=== PATIENT | male | born 1950 | race Caucasian/White ===

== ENCOUNTER → 2023-10-13 06:20 | Day surgery (SDC) | payer MEDICARE, SELFPAY | LOC: GI 06:20 | PROVIDERS: ATTENDING PHYSICIAN Internal Medicine Gastroenterology | DX: Z12.11 Encounter for screening for malignant neoplasm of colon (principal); D12.5 Benign neoplasm of sigmoid colon; K57.30 Diverticulosis of large intestine without perforation or abscess without bleeding; D12.8 Benign neoplasm of rectum; K62.1 Rectal polyp; K64.8 Other hemorrhoids; K62.4 Stenosis of anus and rectum; Z86.010 Personal history of colon polyps; Z80.0 Family history of malignant neoplasm of digestive organs | CPT/HCPCS: 45385; 45380; 88305 ==

== ENCOUNTER → 2024-04-03 09:43 | Outpatient (REF) | payer MEDICARE, SELFPAY | LOC: RAD 09:43 | PROVIDERS: ATTENDING PHYSICIAN Family Medicine | DX: M25.571 Pain in right ankle and joints of right foot (principal) | CPT/HCPCS: 73630 ==

== ENCOUNTER 2024-08-23 17:30 | Observation (INO) | payer MEDICARE, SELFPAY ==
[2024-08-23] VITALS (7 sets, daily range): BP systolic 132–174; BP diastolic 73–85; BMI 25.0
[2024-08-23 13:48] LABS: % Basophils 0.4 % (0-2); % Eosinophils 1.6 % (0-6); % Immature Granulocytes 0.1 % (0-0.5); % Lymphocytes 21.7 % (20.5-51.1); % Monocytes 8.7 % (1.7-9.3); % Neutrophils 67.5 % (42.2-75.2); Absolute Eosinophils 0.1 10^3/uL (0-0.7); Absolute Lymphocytes 1.8 10^3/uL (1.2-3.4); Absolute Monocytes 0.7 10^3/uL (0.1-0.6); Absolute Neutrophils 5.5 10^3/uL (1.4-6.5); Hematocrit 42.5 % (39.0-52.0); Hemoglobin 14.5 g/dL (13.0-18.0); Mean Corp Hgb Conc. 34.1 g/dL (33.0-37.0); Mean Corpuscular Hgb 31.5 pg (27.0-31.0); Mean Corpuscular Volume 92.4 fL (80.0-94.0); Mean Platelet Volume 9.4 fL (7.4-10.4); Nucleated Red Blood Cells % 0 % (-); Platelet Count 203 10^3/uL (130-400); Red Cell Dist. Width 12.4 % (11.5-14.5); White Blood Cell Count 8.2 10^3/uL (4.8-10.8)
[2024-08-23 13:59] LABS: ALT (SGPT) 18 U/L (0-50); AST (SGOT) 25 U/L (17-59); Albumin 4.2 g/dl (3.5-5.0); Alkaline Phosphatase 50 U/L (38-126); Blood Urea Nitrogen 23 mg/dl (9-20); Calcium 9.7 mg/dl (8.4-10.2); Carbon Dioxide 28 mmol/L (22-30); Chloride 105 mmol/L (98-107); Estimated Creatinine Clearance 82 ml/min; Glucose 123 mg/dl (70-99); Sodium 139 mmol/L (135-145); Total Bilirubin 2.4 mg/dl (0.2-1.3); Total Protein 6.9 g/dl (6.3-8.2); eGFR > 60.00
--- NOTE | 2024-08-23 14:02 | ED.CVA ---
History of Present Illness
General
Chief Complaint: CVA/TIA Symptoms
Source: patient
Exam Limitations: none
Time Seen by Provider: 08/23/24 13:52
Nursing documentation reviewed up to this point in time: agreed with
Onset of Stroke Symptoms
Onset of symptoms known: Yes
Date of onset of symptoms: 08/23/24
Time of onset of symptoms: 12:30
History of Present Illness
History of Present Illness:
Patient presents to ED secondary to sudden onset of difficulty speaking, slurred speech, blurred vision, and right arm/hand tingling sensation, while he was at home around 12:30 PM. Since then, patient states that his symptoms have gradually
improved. At the time of evaluation ED, patient states that his symptoms have mostly resolved. Denies previous history of similar symptoms. Denies headache. Denies difficulty with swallowing. Denies weakness. Denies difficulty with ambulation.
Denies recent illness. Denies recent medication changes or diet changes.
Review of Systems
Review of Systems
Allergies reviewed?: Yes
All Other Systems: ROS reviewed and negative except as documented in HPI and ROS
Constitutional: Reports no symptoms
Respiratory: Reports no symptoms
Cardiac: Reports no symptoms
ABD/GI: Reports no symptoms
Musculoskeletal: Reports no symptoms
Skin: Reports no symptoms
Neurological: Reports numbness and other (Blurred vision, expressive aphasia)
Phy Exam
Physical Exam
Physical Exam:
Physical Exam
General: no apparent distress, not acutely ill. afebrile
Head: nc/at. eomi
Neck: supple. normal range of motion. no carotid bruit
Heart: s1/s2 regular rate and rhythm, no murmur.
Lungs: no acute respiratory distress. clear bilaterally
Abdomen: normal bowel sounds. not tender.
Neuro: alert and oriented x 3. no focal neurological deficits. normal speech. normal finger to nose testing
Skin: no rash
Psychiatric: well kept. interactive and cooperative
Extremities: no edema. no calf tenderness.
Course
Orders/Labs/Results
Orders:
Orders
08/23/24 13:39
Complete Blood Count/With Diff Urgent
Comprehensive Metabolic Panel Urgent
08/23/24 13:59
CT HEAD STROKE ALERT W/o Cont Urgent
Comment:
Reason For Exam: RUE tingling with expressive aphasia
CT HEAD/NECK ANG STROKE ALERT Urgent
Comment:
Reason For Exam: RUE tingling w expressive aphasia
08/23/24 14:00
Electrocardiogram (*1) Stat
Reason for Study: Other
Other Reason for Exam: neuro symptoms
EKG- Treatment ONCE
08/23/24 14:37
Aspirin Chewable [Low Strength Aspirin] 81 mg PO NOW STA
Clopidogrel Bisulfate [Plavix] 300 mg PO NOW STA
08/23/24 15:44
EEG Routine Routine
Reason for Exam: transient aphasia
08/23/24 16:54
Aspirin Low Dose EC [Aspir Low (Enteric Coated)] 81 mg .ROUTE .STK-MED ONE
08/23/24 16:55
Clopidogrel Bisulfate [Plavix] 300 mg .ROUTE .STK-MED ONE
08/23/24 16:57
Aspirin Chewable [Low Strength Aspirin] 81 mg .ROUTE .STK-MED ONE
08/23/24 17:01
Admit/Transfer Patient As Directed
Co-Sign Provider:
Level of Care: Observation services
Assign to:: Telemetry
Physician / Group: [email or web address]
Diagnosis: Acute L MCA region transient neurological episode : TIA vs CVA
Reason for Telemetry: CVA/TIA
Date to Stop Telemetry: 08/26/24
Time to Stop Telemetry: 11:00
Reason for Hospitalization: Acute L MCA region transient neurological episode : TIA vs CVA
08/23/24 17:03
Code Status As Directed
Resuscitation Status: Full Code
08/23/24 17:04
B12 [Vitamin B12] Routine
Hemoglobin A1c [Glycohemoglobin (HgbA1c)] Routine
Lipid Profile [Cardiovascular Evaluation] Routine
TSH Reflex To Free T4 Routine
08/23/24 17:44
Speech Therapy Eval & Treat Routine
08/23/24 18:38
Acetaminophen [Tylenol/Feverall] 650 mg RECTAL Q4HPRN PRN
Acetaminophen [Tylenol] 650 mg PO Q4HPRN PRN
08/23/24 18:38
Case Management Consult ONCE
Case Management Consult: Discharge Planning
Comment: stroke/tia
DIETARY IP CONSULT Routine
Reason for Consult: stroke/TIA
NEUROLOGY CONSULT Urgent
Consulting Provider: Sofie Arenas
Was physician already notified: Yes
Reason for consult: TIA vs CVA
Drywall Installer Urgent
Activity As Directed
Activity Level: With Assistance
NIH Stroke Scale As Directed
Directions: Per protocol
Comment: every shift and with any change in condition or mental status
Neurological Checks As Directed
Frequency: q4h
Additional Instructions:: q4h x 24h upon admission to the floor, then qshift & with any change in condition
and mental status
Patient Education As Directed
Type: Stroke education packet
Comment: provide to patient and family
Pneumatic Compression Sleeves As Directed
Type: Knee high
Vital Signs As Directed
Frequency: Per unit guidelines
Ot Eval And Treat Routine
Pt Eval And Treat Routine
Activity Level: With Assistance
DX Deep Vein Thrombosis Video Routine
08/24/24 06:00
Echo 2D MMode Color/Doppler Routine
Reason for Study: Thrombotic source for stroke-like sxs
Basic Metabolic Panel IN AM
Cardiovascular Evaluation IN AM
08/24/24 08:00
Aspirin Chewable [Low Strength Aspirin] 81 mg PO DAILY
Clopidogrel Bisulfate [Plavix] 75 mg PO DAILY
Rosuvastatin Calcium [Crestor] 20 mg PO DAILY
08/24/24 19:31
MR Brain W/o & With Contrast Routine
Reason For Exam: meningioma
OK for patient to be off Cardiac Monitoring for MRI: No
Recent pill cam endoscopy?: No
08/26/24 11:00
DC Protocol for Telemetry ONCE
Abnormal Lab Results
08/23/24
13:39
RBC 4.60 L 10^6/uL
(4.70-6.10)
MCH 31.5 H pg
(27.0-31.0)
Absolute Monos (auto) 0.7 H 10^3/uL
(0.1-0.6)
BUN 23 H mg/dl
(9-20)
Glucose 123 H mg/dl
(70-99)
Total Bilirubin 2.4 H mg/dl
(0.2-1.3)
08/23/24 13:39
08/23/24 13:39
Vital Signs
Initial and Last Documented VS:
Initial Vital Signs
Temp Pulse Resp BP Pulse Ox
97.6 F 53 16 165/85 98
08/23/24 13:31 08/23/24 13:31 08/23/24 13:31 08/23/24 13:31 08/23/24 13:31
Last Documented Vital Signs
Temp Pulse Resp BP Pulse Ox
97.6 F 56 20 141/76 98
08/23/24 13:31 08/23/24 18:30 08/23/24 18:30 08/23/24 18:00 08/23/24 18:35
MDM/Problems Addressed
MDM/Problems Addressed:
Stroke alert activated. Patient evaluated immediately by myself along with neurology, .
CT head/CTA head neck without acute findings. Patient is not a candidate for treatment via tenecteplase, secondary to complete resolution of symptoms at this time, with NIH stroke scale score of 0.
History and exam concerning for TIA. As such, patient will be admitted for further evaluation/tx, and will be started on aspirin and Plavix.
*EKG
Interpreted by ED Provider?: Yes
EKG Intrepretation Date: 08/23/24
Heart Rate: 58
Rate: bradycardiac
Rhythm: sinus
[place]: normal axis
*Critical Care Note
Total Time (30-74mins, 75-104mins- exclusive of procedures): Not Applicable
ED Attending Note
-
Portions of this chart may have been created with voice recognition software.� Occasional wrong word or��sound alike� substitutions may have occurred due to the inherent limitations of voice recognition software.
Discharge Plan
Departure
Patient Disposition: Admit
Date of Disposition: 08/23/24
Time of Disposition: 14:55
Admit to: Telemetry
Presentation/result/management discussed w/ accepting MD/DO: Hospitalist
Discharge Problem:
TIA (transient ischemic attack)
Interventions
Interventions:
*Risk Screen - Suicide Last Done: 08/23/24 19:44
*General Assessment Last Done: 08/23/24 17:41
*Neglect/Abuse Screening Last Done: 08/23/24 13:35
*ED- Fall Risk Assessment Last Done: 08/23/24 18:15
*ED COVID-19 Vaccine History Last Done: 08/23/24 19:44
*Nursing Disposition Last Done: 08/23/24 18:15
ED- Pulmonary Assessment Last Done: 08/23/24 14:34
ED- Neurological Assessment Last Done: 08/23/24 14:34
ED- Cardiac Assessment Last Done: 08/23/24 14:34
ED Swallowing Screen Last Done: 08/23/24 15:00
Discharge Date and Time
Discharge Date/Time: 08/23/24 18:15
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
[2024-08-23] MEDS: PLAVIX 300 MG PO (16:56)
[2024-08-23] MEDS: LOW STRENGTH ASPIRIN 81 MG PO (16:57)
[2024-08-23 17:27] LABS: HDL Cholesterol 67 mg/dl; LDL Cholesterol, Calculated 71 mg/dl; Total Cholesterol 152 mg/dl (50-199); Triglyceride 71 mg/dl (10-149); Very Low Density Lipoprotein 14 mg/dl (0-30)
[2024-08-23 18:33] LABS: TSH Reflex To Free T4 3.12 uIU/ml (0.47-4.68)
--- NOTE | 2024-08-23 18:40 | PTCARENOTE ---
Received pt from ER via stretcher, accompanied by ER staff. Pt AAO x3, PEÑA well,ambulatory to bed,gait steady; no c/o weakness/dizziness. NIHSS 0; pt passed swallow eval upon arrival to unit. VSS. PLaced on telemetry:NSR/SB. On room air- pulse
ox 98%, no SOB noted. Abd soft, roundedm to start regular diet. Pt DTV; urinal at bedside. Oriented to 4East, currently resting in bed, no c/o. Will continue to monitor.
[2024-08-23 20:20] LABS: Vitamin B12 686 pg/ml (239-931)
[2024-08-24] MEDS: TYLENOL 650 MG PO ×3 (01:10→13:55)
[2024-08-24 03:36] VITALS: BP 115/59
[2024-08-24 07:20] VITALS: BP 123/68
[2024-08-24] MEDS: LOW STRENGTH ASPIRIN 81 MG PO (07:42)
[2024-08-24] MEDS: CRESTOR 20 MG PO (07:42)
[2024-08-24] MEDS: PLAVIX 75 MG PO (07:42)
[2024-08-24 07:44] LABS: Blood Urea Nitrogen 17 mg/dl (9-20); Calcium 9.5 mg/dl (8.4-10.2); Carbon Dioxide 28 mmol/L (22-30); Chloride 104 mmol/L (98-107); Estimated Creatinine Clearance 82 ml/min; Glucose 92 mg/dl (70-99); HDL Cholesterol 70 mg/dl; LDL Cholesterol, Calculated 91 mg/dl; Potassium 4.3 mmol/L (3.5-5.1); Sodium 141 mmol/L (135-145); Total Cholesterol 179 mg/dl (50-199); Triglyceride 91 mg/dl (10-149); Very Low Density Lipoprotein 18 mg/dl (0-30); eGFR > 60.00
--- NOTE | 2024-08-24 09:16 | EEG.RPT ---
Electroencephalogram Report
Recording
Date of EE08/24/24
Type of EEG: Routine
Length of EEG recordin minutes
Done with Video Recording: Yes
Patient Status: Inpatient
Recording Conditions: Awake and Drowsy
Hyperventilation Performed: Yes
Photic Stimulation Performed: Yes
Report
LESS THAN 1 HOUR EEG REPORT
LESS THAN 1 HOUR EEG INTERPRETATION:
Unremarkable EEG for age
CLINICAL CORRELATION:
A normal EEG does not rule out a diagnosis of epilepsy. If clinical suspicion for seizure persists, a prolonged recording may be warranted.
Clinical correlation is advised.
METHODS:
A 21 channel digitized electroencephalogram (EEG) was performed using the 10/20 international system of electrode placement and one-lead of ECG recorded. Video was recorded. Persyst quantitative EEG analysis was performed.
ELECTROENCEPHALOGRAPHER IMPRESSION(S):
Quality of study
Good
Background
There was an unremarkable anterior-posterior voltage gradient of alpha frequency.
With eye opening the background activity changed to a low voltage mixture of frequencies.
There were no significant asymmetries of background activity noted.
Sleep
Drowsiness present
Hyperventilation
No driving
Photic Stimulation
No driving
ECG
Normal sinus rhythm
[2024-08-24 09:48] LABS: Glycohemoglobin (HgbA1c) 5.3 % (4.0-5.6)
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
[2024-08-24 11:20] VITALS: BP 133/64
[2024-08-24 11:25] VITALS: BP 132/60; PULSE 61
[2024-08-24] MEDS: KEPPRA 1000 MG IV (11:34)
[2024-08-24 12:08] LABS: Magnesium 1.9 mg/dl (1.6-2.3)
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
[2024-08-24 15:11] VITALS: BP 133/74
--- NOTE | 2024-08-24 15:32 | W.DCSUMMARY ---
Discharge Summary
Discharge Data
Date of Admission: 08/23/24
Date of Discharge: 08/24/24
-
Pending Results: No
Hospital Course
Hospital course
Patient admitted to the hospital with language and sensory symptoms and concern for CVA, MRI brain came back negative, echocardiogram came back unremarkable, EEG shows no seizure activity.
Neurology still recommending Keppra on discharge 500 mg twice daily, will also add baby aspirin.
During hospitalization patient was treated from the [facility]
Rule out CVA.
MRI brain came back shows
No acute intracranial abnormality noted.
There is an 8 mm calcified, extra-axial lesion along the left frontal convexity consistent with calcified meningioma. There is no significant local mass effect.
Mild atrophy with sequelae of mild small vessel ischemic disease.
Echocardiogram done shows :
Normal biventricular size and systolic function without regional wall motion
abnormality. Estimated LVEF 60-65%.
No significant valve disease.
Interatrial septum is intact with no evidence of shunting by color flow
Doppler.
EEG shows no seizure activity.
Seen by neurology.
Started on baby aspirin, statin.
Also started on Keppra by neurology.
Follows neurology recommendation regarding discharge plan and discharge medications
LDL 91
Left high vertex calcifications versus meningioma.
- Observe
HLD
- c/w Rosuvastatin
Total time spent on today's encounter was 40 minutes which included time spent in counseling the patient/family regarding diagnosis and treatment plan as listed above, goals of care, and symptom management. Case was discussed with nursing staff,
specialists, and care coordinators/case management. All labs and imaging personally reviewed by me. Remainder the time spent in detailed review of previous records, lab data, imaging, and other medical provider documentation.
Anticipated Discharge: Today
Discharge Plan
-
Patient Disposition: Home (Routine Discharge)
Discharge Diagnosis/Procedures: TIA.
Rule out seizure
Diet: As tolerated
Activity: As tolerated
Driving Restrictions: Not until seen by your Dr
Referrals:
Gianfranco Cash MD [Active] - in two to three weeks
Elle Martinez MD [Family Provider] -
Prescriptions:
New
levetiracetam 500 mg Tablet
500 mg PO BID Qty: 60 0RF
aspirin 81 mg Tablet,Chewable
81 mg PO DAILY Qty: 30 0RF
acetaminophen 325 mg Tablet
650 mg PO Q4HPRN PRN (Reason: MCMANUS, mild pain, or temp >100.4F) Qty: 0 0RF
Continued
ibuprofen [Advil] 200 mg Tablet
400 mg PO Q6H PRN (Reason: mild pain)
rosuvastatin 20 mg tablet
20 mg PO DAILY
Discharge Orders:
Discharge Patient (As Directed); Ordered 08/24/24
Ordered By: Mary Haney
Discharge Date and Time
Print Language: ROMANSH
--- NOTE | 2024-08-24 17:46 | CM ---
Alert awake oriented patient who lives with Luann in 2 story home with 2 step to enter and 12 steps to bed bathroom He is independent in all activities of daily living.He was offered VN he declined need.[facility] letter given explained signed on
chart.
No VN hx / No SNF history
Pharmacy [facility]
PCP DR Martinez
PLAN Home Declined VN
== END 2024-08-24 18:28 | disposition home or self-care (01) ==
LOC: 4 EAST ACU 17:30
PROVIDERS: Emergency Medicine; ADMITTING PHYSICIAN Internal Medicine; ATTENDING PHYSICIAN General Practice; CONSULT PHYSICIAN Psychiatry & Neurology Neurology; EMERGENCY PHYSICIAN Emergency Medicine; FAMILY PHYSICIAN Family Medicine
DX: G45.9 Transient cerebral ischemic attack, unspecified (principal); H53.8 Other visual disturbances; R47.01 Aphasia; R47.81 Slurred speech; R20.2 Paresthesia of skin; R20.0 Anesthesia of skin; R29.818 Other symptoms and signs involving the nervous system; D32.9 Benign neoplasm of meninges, unspecified; E80.4 Gilbert syndrome; I10 Essential (primary) hypertension; E78.00 Pure hypercholesterolemia, unspecified; R00.1 Bradycardia, unspecified; I67.82 Cerebral ischemia; G31.9 Degenerative disease of nervous system, unspecified; Z87.442 Personal history of urinary calculi; Z79.82 Long term (current) use of aspirin; Z79.02 Long term (current) use of antithrombotics/antiplatelets
CPT/HCPCS: 70450; 70496; 70498; 70553; 80048; 80053; 80061; 82607; 83036; 83735; 84443; 85025; 93005; 93306; 95816; 97162; 97167; 99285; A9575; G0378; Q9967

== ENCOUNTER 2024-09-27 13:35 | Outpatient (RCR) | payer MEDICARE, SELFPAY | END 2024-09-27 23:59 | disposition home or self-care (01) | LOC: RST 13:35 | PROVIDERS: ATTENDING PHYSICIAN Family Medicine | DX: G45.9 Transient cerebral ischemic attack, unspecified (principal); R41.89 Other symptoms and signs involving cognitive functions and awareness; H53.8 Other visual disturbances; R47.89 Other speech disturbances; Z73.6 Limitation of activities due to disability | CPT/HCPCS: 96125; 97129; 97130 ==

== ENCOUNTER 2024-10-22 08:41 | Outpatient (RCR) | payer MEDICARE, SELFPAY | END 2024-10-22 23:59 | disposition home or self-care (01) | LOC: RST 08:41 | PROVIDERS: ATTENDING PHYSICIAN Family Medicine | DX: G45.9 Transient cerebral ischemic attack, unspecified (principal); R41.89 Other symptoms and signs involving cognitive functions and awareness; H53.8 Other visual disturbances; D32.9 Benign neoplasm of meninges, unspecified; R47.89 Other speech disturbances; Z73.6 Limitation of activities due to disability | CPT/HCPCS: 97129; 97130 ==

== ENCOUNTER 2024-11-28 10:15 | Outpatient (RCR) | payer MEDICARE, SELFPAY | END 2024-11-28 23:59 | disposition home or self-care (01) | LOC: RST 10:15 | PROVIDERS: ATTENDING PHYSICIAN Family Medicine | DX: G45.9 Transient cerebral ischemic attack, unspecified (principal); R41.89 Other symptoms and signs involving cognitive functions and awareness; D32.9 Benign neoplasm of meninges, unspecified; H53.8 Other visual disturbances; R47.89 Other speech disturbances; Z73.6 Limitation of activities due to disability | CPT/HCPCS: 97129; 97130 ==

== ENCOUNTER 2024-12-05 07:11 | Outpatient (RCR) | payer MEDICARE, SELFPAY | END 2024-12-05 09:25 | disposition home or self-care (01) | LOC: RST 07:11 | PROVIDERS: ATTENDING PHYSICIAN Family Medicine | DX: G45.9 Transient cerebral ischemic attack, unspecified (principal); R41.89 Other symptoms and signs involving cognitive functions and awareness; D32.9 Benign neoplasm of meninges, unspecified; H53.8 Other visual disturbances; R47.89 Other speech disturbances; Z73.6 Limitation of activities due to disability | CPT/HCPCS: 97129; 97130 ==

== ENCOUNTER → 2024-12-27 09:00 | Outpatient (REF) | payer MEDICARE, SELFPAY | LOC: CLAB 09:00 | PROVIDERS: ATTENDING PHYSICIAN Student in an Organized Health Care Education/Training Program; FAMILY PHYSICIAN Family Medicine | DX: M20.21 Hallux rigidus, right foot (principal) | CPT/HCPCS: 88304 ==

== ENCOUNTER → 2025-02-05 10:35 | Outpatient (REF) | payer MEDICARE, SELFPAY | LOC: RAD 10:35 | PROVIDERS: ATTENDING PHYSICIAN Student in an Organized Health Care Education/Training Program; FAMILY PHYSICIAN Family Medicine | DX: I73.9 Peripheral vascular disease, unspecified (principal) | CPT/HCPCS: 93922; 93925 ==

== ENCOUNTER 2025-02-28 16:07 | Inpatient (IN) | payer MEDICARE, SELFPAY ==
[2025-02-27 14:04] VITALS: BMI 24.5
[2025-02-27 15:20] LABS: Blood Urea Nitrogen 20 mg/dl (9-20); Calcium 9.6 mg/dl (8.4-10.2); Carbon Dioxide 29 mmol/L (22-30); Chloride 103 mmol/L (98-107); Estimated Creatinine Clearance 84 ml/min; Glucose 84 mg/dl (70-99); Potassium 4.7 mmol/L (3.5-5.1); Sodium 136 mmol/L (135-145); eGFR > 60.00
[2025-02-28 16:37] VITALS: BMI 24.5
[2025-02-28 16:38] VITALS: BP 169/79
[2025-02-28] MEDS: NORMOSOL-R/PLASMALYTE-A 1000 IV (16:57)
[2025-02-28] MEDS: CELEBREX 200 MG PO (16:57)
[2025-02-28] MEDS: TYLENOL 1000 MG PO (16:57)
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
[2025-02-28 22:45] VITALS: BP 154/81; BP 169/79
[2025-02-28 23:00] VITALS: BP 121/52
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
[2025-02-28 23:13] VITALS: BP 136/58
[2025-02-28 23:15] VITALS: BP 136/58
[2025-02-28 23:30] VITALS: BP 143/74
[2025-02-28 23:50] VITALS: BMI 24.6
[2025-03-01] VITALS (9 sets, daily range): BP systolic 118–153; BP diastolic 62–82; PULSE 82; O2SAT 96
[2025-03-01] MEDS: NORMOSOL-R/PLASMALYTE-A 1000 IV ×2 (00:22→22:00)
[2025-03-01] MEDS: ZOSYN 50 IV ×5 (00:28→23:19)
[2025-03-01] MEDS: VANCOCIN 540 MG IV (01:12)
[2025-03-01] MEDS: ANCEF 10 IV ×2 (04:00→13:17)
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
--- NOTE | 2025-03-01 09:24 | W.PN.UPDATE ---
Update Note
Progress Note Update
74M s/p R CARLEE, I&D, soft tissue rearrangement for treatment of exposed hardware. Doing well this AM, no pain. CFT brisk, sensation intact to pedal distributions, motor function intact, calves soft supple nontender to touch.
- Strict NWB RLE
- Dressings c/d/i
- elevate RLE 2-3 pillows
- would appreciate ID recommendations, IV abx
-- cx x2 (pre and post lavage), bx x1
- will continue to monitor, patient has appointment schedule w/ Amandeep on Tuesday
--- NOTE | 2025-03-01 09:37 | PHA.VAN.IN ---
Addendum entered and electronically signed by Yanira Ortega RPH 03/01/25 14:13:
BUN & SCR ordered per protocol
Original Note:
Assessment
- Assessment
Renal Function: Appears similar to baseline
AUC Dosing Plan
- Dosing Variables
Dosing Weight (kg): 80
Dosing CrCl (ml/min): 84
Vd coefficient (L/kg): 0.7
- Empiric Dosing
Initial / Loading Dose: 2000mg - 03/01 01:12
Maintenance Regimen: Vanc 1000mg Q12H
Estimated AUC (mcg*h/mL): 500
Estimated Peak (mcg*h/mL): 30.3
Estimated Trough (mcg/ml): 13.4
Estimated Half Life (H): 9.3
- Monitoring
No levels ordered at this time: consider levels in next few days
Pharmacokinetics Vancomycin I
- -
Patient Age: 74
Patient Sex: Male
Vancomycin Day #: 2
Indication: Bone And Joint
Requesting Provider: Dr. Ingram
Pertinent Antimicrobial Allergies:
NKDA
Height / Weight:
Height 5 ft 11 in
Actual Weight 79.968 kg
- Vital Signs / Lab Results
Temp Pulse Resp BP Pulse Ox
97.7 F 74 18 142/73 95
03/01/25 07:00 03/01/25 07:00 03/01/25 07:00 03/01/25 07:00 03/01/25 07:00
Lab Results - Chemistry
02/27/25
13:07
BUN 20
Creatinine 0.8
Estimated Creat Clear 84
[2025-03-01 12:38] LABS: Glycohemoglobin (HgbA1c) 5.2 % (4.0-5.9)
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
[2025-03-01] MEDS: TYLENOL 500 MG PO (15:46)
--- NOTE | 2025-03-01 16:30 | VNURNOTE ---
Home Health Liaison met with patient and spouse at bedside to discuss HH nurse/therapy, visits, schedule and homebound status. Offered [facility] -our partner agency. Both are agreeable and understands that visits at home will be 2-3 x per
week to assess and teach medical management. Both are aware that [facility] will contact them for start of care in 1-2 days after discharge from . Provided contact number for [facility]. Will watch for IV Antibx.
[facility] referral completed in [facility].
--- NOTE | 2025-03-01 16:57 | OR.RPT ---
Operative Report
Operative Report
OPERATIVE REPORT
Patient Name: Valeriy Benjamin

Date of Surgery: 03/01/2025
Surgeon: Arash Bernstein DPM
Assistants: Arash Wright DPM, Diane Varela DPM
Preoperative Diagnosis:
Nonhealing surgical wound, right foot
Exposed hardware and tendon, right first metatarsophalangeal joint (MTPJ)
Postoperative Diagnosis:
Same as preoperative
Procedures Performed:
Adjacent tissue transfer with local flap closure (�hurricane flap�) (CPT 38106 Modifier 78) � right foot
Removal of hardware, deep (CPT 87894 Modifier 78) � right foot
Anesthesia: General anesthesia with 10ccs of 0.5% bupivacaine plain
Hemostasis: Anatomic dissection
Estimated Blood Loss: Minimal
Specimens:
Right foot wound and hardware culture
Post-washout culture
Right foot hardware (pathology
Implants: None
Complications: None
Findings:
There was a nonhealing wound at the distal aspect of the prior right first MTPJ incision measuring approximately 1.8 cm x 1.5 cm with exposed extensor hallucis longus (EHL) tendon and underlying plate. There was no purulence or necrotic tissue. The
underlying fusion site appeared solid with firm, viable bone. The surrounding soft tissues were healthy and well-vascularized.
Indications for Procedure:
The patient is an 74-year-old male who underwent right first MTPJ arthrodesis approximately eight weeks prior. Postoperatively, he developed a nonhealing wound at the distal incision. He was evaluated earlier this week in the office and the wound
had exposure of the EHL tendon and hardware. Given the exposed hardware and failure of conservative management, surgical debridement, hardware removal, and local tissue rearrangement were indicated to achieve closure if appropriate
Procedure in Detail:
After appropriate identification and marking of the right foot, the patient was brought to the operating room and placed supine on the operating table. Following induction of anesthesia, the right foot was prepped and draped in the usual sterile
fashion.
Attention was directed to the prior incision over the first MTPJ. The nonhealing wound, measuring approximately 1.8 cm x 1.5 cm, was identified with exposure of the underlying plate and EHL tendon. Sharp excisional debridement of all nonviable
tissue was performed using a #15 blade and rongeur down to the level of bone until healthy, bleeding soft tissue and bone were encountered. The previously utilized proximal aspect of the incision was then carried down to the plate.
The exposed Burtrum Crosscheck plate was visualized and all screws were sequentially removed in their entirety. The plate was then removed in its entirety without difficulty. The underlying arthrodesis site was inspected and found to be solid with
no motion across the fusion. The bone appeared healthy and viable. No purulence or evidence of deep infection was present.
Deep wound and hardware cultures were obtained. The wound was then copiously irrigated with several liters of sterile saline solution. A post-washout culture was also taken for microbiologic analysis.
There was no signs of acute infection at this time, so closure was deemed appropriate. Given the circular defect, a two-incision �hurricane-type� local skin flap was designed to achieve tension-free coverage. The incisions were carried approximately
3cms proximally and distally in a curvilinear fashion. The flaps were carefully elevated and transposed over the defect, ensuring adequate vascularity and alignment of the tissue edges. The wound was primarily closed in layers using 3-0 Monocryl for
the subcutaneous tissues and a combination of 3-0 and 4-0 Prolene for the skin in an interrupted fashion.
A sterile bolster dressing was applied over the incision site, followed by a well-padded posterior splint to maintain immobilization and protection of the repair.
The patient tolerated the procedure and anesthesia well. All counts were correct at the end of the procedure. He was transferred to the recovery room in stable condition.
Postoperative Plan:
Maintain dressing clean, dry, and intact
Continue non-weightbearing to right lower extremity
Await culture results and treat with antibiotics as indicated
Follow-up in 3-5 days for wound evaluation
[2025-03-01] MEDS: VANCOCIN 200 IV (17:42)
[2025-03-01] MEDS: MOTRIN 600 MG PO (21:55)
[2025-03-01] MEDS: CRESTOR 20 MG PO (21:55)
[2025-03-01] MEDS: LOW STRENGTH ASPIRIN 81 MG PO (21:56)
[2025-03-02 04:10] VITALS: BP 141/76
[2025-03-02] MEDS: ZOSYN 50 IV ×3 (05:33→17:48)
[2025-03-02] MEDS: VANCOCIN 200 IV ×2 (05:33→18:09)
[2025-03-02 07:31] LABS: Blood Urea Nitrogen 14 mg/dl (9-20); Estimated Creatinine Clearance 84 ml/min
--- NOTE | 2025-03-02 08:10 | PHA.VAN.FU ---
Vancomycin Assessment / Plan
- Assessment
Renal Function: Stable
In the past 24 hrs, patient has been: Afebrile
Concomitant Antimicrobials: ZOSYN
- Dosing Plan
Continue: 1000MG Q12H
- Monitoring Plan
Peak Level: 03/03 @2100
Trough Level: 03/04 @0530
- Follow Up
Pharmacy will continue to follow.
Vancomycin Follow UP
- -
Patient Age: 74
Patient Sex: Male
Vancomycin Day #: 3
Indication: Bone And Joint
Requesting Provider: Dr. Ingram
Pertinent Antimicrobial Allergies:
NKDA
Height / Weight:
Height 5 ft 11 in
Actual Weight 79.968 kg
- Vital Signs / Lab Results
Temp Pulse Resp BP Pulse Ox
98.3 F 61 16 141/76 96
03/02/25 04:10 03/02/25 04:10 03/02/25 04:10 03/02/25 04:10 03/02/25 04:10
Lab Results - Chemistry
02/27/25 03/02/25
13:07 06:43
BUN 20 14
Creatinine 0.8 0.8
Estimated Creat Clear 84 84
Microbiology Results
02/28/25 21:30 Gram Stain - Preliminary
Foot - Right
02/28/25 21:37 Gram Stain - Preliminary
Foot - Right
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
[2025-03-02 08:50] VITALS: BP 122/64
--- NOTE | 2025-03-02 11:20 | W.PN.ID1 ---
Date of Service
Date of Service: March 02, 2025
Today's Communication
Continue antibiotics.
Assessment / Plan
(R) hallux exposed hardware infection s/p arthrodesis (12/27/24)
s/p debridement / hardware explant (02/28/25)
Recommendations:
Continue current wound care
Wound cultures pending.
Continue with vancomycin and Zosyn pending further culture data.
����������������������������������������������������������
Chief Complaint
-: Other (right hallux hardware infection)
Subjective / Review of Systems
Review of Systems: No Fever and No Chills
Vital Signs / Physical Exam
Vital Signs
Vital Signs
Temp Pulse Resp BP Pulse Ox
98.2 F 53 15 122/64 97
03/02/25 08:50 03/02/25 08:50 03/02/25 08:50 03/02/25 08:50 03/02/25 08:50
Physical Exam
Constitutional: No Acute Distress, Comfortable and Non-toxic
Eyes: Sclera Anicteric
Cardiovascular: S1/S2; Negative S3/S4
Pulmonary: Clear; Negative Wheezes or Rales
Gastrointestinal: Soft, Non Tender and Non Distended
Wound: Other (right foot / hallux dressed. No strikethrough. Lower extremity splinted and wrapped in Ismael wrap.)
Neurological: Awake and Alert
Psychological: Calm
Objective Data
Lab Data
Lab Results
03/02/25 06:43
Estimated Creat Clear 84 ml/min 03/02/25 06:43
Most recent labs reviewed.
Micro Results:
02/28/25 21:30 Wound Culture - Pending
Foot - Right Gram Stain - Preliminary
02/28/25 21:37 Wound Culture - Pending
Foot - Right Gram Stain - Preliminary
02/28/25 21:30 Anaerobic Culture - Pending
Foot - Right
02/28/25 21:37 Anaerobic Culture - Pending
Foot - Right
[2025-03-02 15:55] VITALS: BP 119/59
[2025-03-02 15:56] VITALS: BP 128/65
[2025-03-02 16:07] VITALS: BP 128/65; PULSE 66; O2SAT 97
[2025-03-02] MEDS: MOTRIN 600 MG PO (17:43)
[2025-03-02] MEDS: TYLENOL 500 MG PO (22:01)
[2025-03-02] MEDS: CRESTOR 20 MG PO (22:01)
[2025-03-02] MEDS: LOW STRENGTH ASPIRIN 81 MG PO (22:01)
[2025-03-02 23:05] VITALS: BP 124/70
[2025-03-03] MEDS: ZOSYN 50 IV ×3 (00:02→13:11)
[2025-03-03] MEDS: VANCOCIN 200 IV ×2 (06:01→17:41)
[2025-03-03 07:10] VITALS: BP 129/71
--- NOTE | 2025-03-03 07:51 | PHA.VAN.FU ---
Vancomycin Assessment / Plan
- Assessment
Renal Function: Stable
In the past 24 hrs, patient has been: Afebrile
Concomitant Antimicrobials: ZOSYN
- Dosing Plan
Continue: 1000MG Q12H
- Monitoring Plan
Peak Level: 03/03 @1800
Trough Level: 03/04 @0530
- Follow Up
Pharmacy will continue to follow.
Vancomycin Follow UP
- -
Patient Age: 74
Patient Sex: Male
Vancomycin Day #: 4
Indication: Bone And Joint
Requesting Provider: Dr. Ingram
Pertinent Antimicrobial Allergies:
NKDA
Height / Weight:
Height 5 ft 11 in
Actual Weight 79.968 kg
- Vital Signs / Lab Results
Temp Pulse Resp BP Pulse Ox
98.4 F 61 14 124/70 96
03/02/25 23:05 03/02/25 23:05 03/02/25 23:05 03/02/25 23:05 03/02/25 23:05
Lab Results - Chemistry
03/02/25
06:43
BUN 14
Creatinine 0.8
Estimated Creat Clear 84
Microbiology Results
02/28/25 21:30 Anaerobic Culture - Preliminary
Foot - Right Culture pending. Anaerobic cultures are examined after 3
days incubation. Additional information to follow.
02/28/25 21:30 Wound Culture - Preliminary
Foot - Right No growth
Gram Stain - Preliminary
02/28/25 21:37 Anaerobic Culture - Preliminary
Foot - Right Culture pending. Anaerobic cultures are examined after 3
days incubation. Additional information to follow.
02/28/25 21:37 Wound Culture - Preliminary
Foot - Right No growth
Gram Stain - Preliminary
[2025-03-03 08:52] VITALS: BP 150/87; PULSE 57; O2SAT 97
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
--- NOTE | 2025-03-03 12:40 | W.PN.ID1 ---
Date of Service
Date of Service: March 03, 2025
Today's Communication
Continue vancomycin. Discontinue further Zosyn.
Assessment / Plan
(R) hallux exposed hardware infection s/p arthrodesis (12/27/24)
s/p debridement / hardware explant (02/28/25)
Recommendations:
Wound culture without growth, although given exposed hardware, potential for bone infection high.
Continue with vancomycin for the present. Discontinue further Zosyn.
I had a long discussion with the patient and his who is at the bedside regarding prolonged antibiotics.
They are amenable to a 3 to 6-week course of IV antibiotics in the treatment of potential osteomyelitis.
Will formalize plan in AM.
����������������������������������������������������������
Chief Complaint
-: Other (right hallux hardware infection)
Subjective / Review of Systems
Patient seen and examined. Reports feeling well. No specific complaints at present.
Review of Systems: No Fever and No Chills
Vital Signs / Physical Exam
Vital Signs
Vital Signs
Temp Pulse Resp BP Pulse Ox
97.9 F 68 18 129/71 97
03/03/25 07:10 03/03/25 07:10 03/03/25 07:10 03/03/25 07:10 03/03/25 07:10
Physical Exam
Constitutional: No Acute Distress, Comfortable and Non-toxic
Eyes: Sclera Anicteric
Pulmonary: Non Labored
Gastrointestinal: Non Distended
Extremities: Negative Edema or Cyanosis
Wound: Other (right foot / hallux dressed. No strikethrough. Lower extremity splinted and wrapped in Ismael wrap.)
Neurological: Awake and Alert
Psychological: Calm
Objective Data
Lab Data
Lab Results
03/02/25 06:43
Estimated Creat Clear 84 ml/min 03/02/25 06:43
Most recent labs reviewed.
Micro Results:
02/28/25 21:37 Wound Culture - Preliminary
Foot - Right No growth
Gram Stain - Preliminary
02/28/25 21:30 Anaerobic Culture - Preliminary
Foot - Right Culture pending. Anaerobic cultures are examined after 3
days incubation. Additional information to follow.
02/28/25 21:30 Wound Culture - Preliminary
Foot - Right No growth
Gram Stain - Preliminary
02/28/25 21:37 Anaerobic Culture - Preliminary
Foot - Right Culture pending. Anaerobic cultures are examined after 3
days incubation. Additional information to follow.
Care Review
Plan reviewed with: Physician (Hospitalist)
[2025-03-03 15:10] VITALS: BP 122/85
[2025-03-03] MEDS: PINK BISMUTH 525 MG PO (17:05)
[2025-03-03] MEDS: CRESTOR 20 MG PO (21:31)
[2025-03-03] MEDS: LOW STRENGTH ASPIRIN 81 MG PO (21:31)
[2025-03-03] MEDS: NEURONTIN 200 MG PO (22:31)
[2025-03-03 23:06] VITALS: BP 132/72
[2025-03-04] MEDS: VANCOCIN 200 IV ×2 (05:57→17:39)
[2025-03-04] MEDS: MOTRIN 600 MG PO ×2 (06:06→21:56)
[2025-03-04 07:40] VITALS: BP 135/79
--- NOTE | 2025-03-04 08:09 | PHA.VAN.FU ---
Vancomycin Assessment / Plan
- Assessment
Renal Function: Stable
In the past 24 hrs, patient has been: Afebrile
- Assessment - Therapeutic Drug Monitoring
Extrapolated Cmax (mcg/mL): 24.1
Peak level was drawn: Appropriately (drawn ~2H after end of previous infusion)
Extrapolated Cmin (mcg/mL): 12.6
Trough Drawn: Appropriately
Levels were drawn: At steady state (levels drawn after 5th maintenance dose)
Calculated AUC (mcg*h/mL): 426
Calculated ke: 0.0591
Calculated half life (H): 11.7
Calculated Vd (L): 79 (~1 L/kg)
Calculated Vanc CL (ml/min): 78
- Dosing Plan
Continue: Vanc 1000mg Q12H
- Monitoring Plan
Level(s) appropriate: Recheck trough at minimum of weekly intervals, Repeat sooner for changes in renal function or clinical status
Next Level Due (Date): ~03/11
- Follow Up
Pharmacy will continue to follow.
Vancomycin Follow UP
- -
Patient Age: 74
Patient Sex: Male
Vancomycin Day #: 5
Indication: Bone And Joint
Requesting Provider: Dr. Ingram / [facility]
Pertinent Antimicrobial Allergies:
NKDA
Height / Weight:
Height 5 ft 11 in
Actual Weight 79.968 kg
- Vital Signs / Lab Results
Temp Pulse Resp BP Pulse Ox
97.9 F 62 17 132/72 94
03/03/25 23:06 03/03/25 23:06 03/03/25 23:06 03/03/25 23:06 03/03/25 23:06
Lab Results - Chemistry
03/02/25
06:43
BUN 14
Creatinine 0.8
Estimated Creat Clear 84
Microbiology Results
02/28/25 21:37 Wound Culture - Preliminary
Foot - Right No growth
Gram Stain - Preliminary
02/28/25 21:30 Anaerobic Culture - Preliminary
Foot - Right Culture pending. Anaerobic cultures are examined after 3
days incubation. Additional information to follow.
02/28/25 21:30 Wound Culture - Preliminary
Foot - Right No growth
Gram Stain - Preliminary
02/28/25 21:37 Anaerobic Culture - Preliminary
Foot - Right Culture pending. Anaerobic cultures are examined after 3
days incubation. Additional information to follow.
Therapeutic Drug Monitoring
Vancomycin Peak 21.3 ug/ml (18-26) 03/03/25 20:45
Vancomycin Trough 12.8 ug/ml (5-20) 03/04/25 05:22
[2025-03-04 08:53] LABS: Blood Urea Nitrogen 14 mg/dl (9-20); Estimated Creatinine Clearance 96 ml/min
--- NOTE | 2025-03-04 11:52 | W.PN.ID1 ---
Date of Service
Date of Service: March 04, 2025
Today's Communication
Continue antibiotics.
Assessment / Plan
(R) hallux exposed hardware infection s/p arthrodesis (12/27/24)
s/p debridement / hardware explant (02/28/25)
Recommendations:
Wound culture without growth, although given exposed hardware, potential for bone infection high.
Continue with vancomycin.
I had a long discussion with the patient and his who is at the bedside regarding prolonged antibiotics.
They are amenable to a 3 to 6-week course of IV antibiotics in the treatment of potential osteomyelitis.
Prescription written for home IV vancomycin.
PICC line ordered.
Will follow-up in office in 2 weeks time.
Weekly labs (BMP, CBC with differential, ESR, CRP and Vanco trough ordered)
����������������������������������������������������������
Chief Complaint
-: Other (right hallux hardware infection)
Subjective / Review of Systems
Review of Systems: No Fever and No Chills
Vital Signs / Physical Exam
Vital Signs
Vital Signs
Temp Pulse Resp BP Pulse Ox
97.7 F 60 16 135/79 96
03/04/25 07:40 03/04/25 07:40 03/04/25 07:40 03/04/25 07:40 03/04/25 07:40
Physical Exam
Constitutional: No Acute Distress, Comfortable and Non-toxic
Eyes: Sclera Anicteric
Pulmonary: Non Labored
Gastrointestinal: Non Distended
Extremities: Negative Edema or Cyanosis
Wound: Other (right foot / hallux dressed. No strikethrough. Lower extremity splinted and wrapped in Ismael wrap.)
Neurological: Awake and Alert
Psychological: Calm
Objective Data
Lab Data
Lab Results
03/04/25 08:42
Estimated Creat Clear 96 ml/min 03/04/25 08:42
Most recent labs reviewed.
Micro Results:
02/28/25 21:30 Anaerobic Culture - Preliminary
Foot - Right Culture pending. Anaerobic cultures are examined after 3
days incubation. Additional information to follow.
02/28/25 21:37 Anaerobic Culture - Preliminary
Foot - Right NO ANAEROBES ISOLATED
02/28/25 21:37 Wound Culture - Preliminary
Foot - Right No growth
Gram Stain - Preliminary
02/28/25 21:30 Wound Culture - Preliminary
Foot - Right No growth
Gram Stain - Preliminary
[2025-03-04 12:47] VITALS: BP 130/75; PULSE 57; O2SAT 100
[2025-03-04 12:55] VITALS: BP 130/75; PULSE 59; O2SAT 100
--- NOTE | 2025-03-04 13:57 | CM ---
Addendum entered by Jessica Hester 03/04/25 14:31:
[facility] indicated they can't start infusions until 03/06/25. CM updated physician via tt and await PICC information. CM will continue to follow for discharge planning needs.
Original Note:
Patient seen at bedside with present on 2 . Patient accepted for [facility] and did not have a preference re home infusion. Referral sent to [facility] as he was already started with [facility] and CM faxed clinical
information to [phone]. Awaiting confirmation of acceptance and costs for patient. Physician updated. CM will continue to follow for discharge planning needs.
Plan; home with Home health and infusion; [facility] pending acceptance and costs
[2025-03-04 15:21] VITALS: BP 124/67
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
[2025-03-04] MEDS: LOW STRENGTH ASPIRIN 81 MG PO (21:56)
[2025-03-04] MEDS: CRESTOR 20 MG PO (21:56)
--- NOTE | 2025-03-04 22:24 | W.PN.SURGUPD ---
Surgical Update
Surgical Update
74 yo M s/p right 1st MTPJ hardware removal, soft tissue rearrangement
-Patient seen and evaluated at bedside, pain is well controlled
-Dressings removed and wound inspected, no signs of ongoing infection. Scabbing noted to tips of skin flaps, but overall surgical site is pink and well perfused
-Continue antibiotics per ID recs
-Continue to monitor cultures, NGTD
-Strict NWB RLE
[2025-03-04 23:08] VITALS: BP 131/75
[2025-03-05] MEDS: VANCOCIN 200 IV (05:07)
[2025-03-05 06:11] LABS: C-Reactive Protein < 5.00 mg/L (0.0-10.00)
[2025-03-05 07:40] VITALS: BP 122/64
--- NOTE | 2025-03-05 08:01 | PHA.VAN.FU ---
Vancomycin Assessment / Plan
- Assessment
Renal Function: No New Labs Today
In the past 24 hrs, patient has been: Afebrile
- Dosing Plan
Continue: Vanc 1000mg Q12H
- Monitoring Plan
Level(s) appropriate: Recheck trough at minimum of weekly intervals, Repeat sooner for changes in renal function or clinical status
Next Level Due (Date): ~03/11
- Follow Up
Pharmacy will continue to follow.
Vancomycin Follow UP
- -
Patient Age: 74
Patient Sex: Male
Vancomycin Day #: 6
Indication: Bone And Joint
Requesting Provider: Dr. Ingram / Daryl
Pertinent Antimicrobial Allergies:
NKDA
Height / Weight:
Height 5 ft 11 in
Actual Weight 79.968 kg
- Vital Signs / Lab Results
Temp Pulse Resp BP Pulse Ox
98.2 F 60 18 122/64 97
03/05/25 07:40 03/05/25 07:40 03/05/25 07:40 03/05/25 07:40 03/05/25 07:40
Lab Results - Chemistry
03/04/25 03/04/25
08:41 08:42
BUN Cancelled 14
Creatinine Cancelled 0.7
Estimated Creat Clear Cancelled 96
Microbiology Results
02/28/25 21:30 Anaerobic Culture - Preliminary
Foot - Right Culture pending. Anaerobic cultures are examined after 3
days incubation. Additional information to follow.
02/28/25 21:37 Anaerobic Culture - Preliminary
Foot - Right NO ANAEROBES ISOLATED
02/28/25 21:37 Wound Culture - Preliminary
Foot - Right No growth
Gram Stain - Preliminary
02/28/25 21:30 Wound Culture - Preliminary
Foot - Right No growth
Gram Stain - Preliminary
Therapeutic Drug Monitoring
Vancomycin Peak 21.3 ug/ml (18-26) 03/03/25 20:45
Vancomycin Trough 12.8 ug/ml (5-20) 03/04/25 05:22
--- NOTE | 2025-03-05 09:22 | PTCARENOTE ---
Pt noted to have a diffuse red rash, primarily back, chest, stomach. Denies itchiness at this time. Last dose of Vancomycin was at 0600 today. Infectious Dz team in to visit at that time. Will await any further orders.
--- NOTE | 2025-03-05 09:35 | W.PN.ID1 ---
Date of Service
Date of Service: March 05, 2025
Today's Communication
Transition vancomycin to daptomycin given new rash.
Assessment / Plan
(R) hallux exposed hardware infection s/p arthrodesis (12/27/24)
s/p debridement / hardware explant (02/28/25)
Recommendations:
Wound culture without growth, although given exposed hardware, potential for bone infection high.
Patient now with new rash, possibly secondary to vancomycin.
Discontinue further vancomycin and begin daptomycin. New infusion she will be given to case management
PICC line ordered.
Will follow-up in office in 2 weeks time.
Weekly labs (BMP, CBC with differential, ESR, CRP and Vanco trough ordered)
����������������������������������������������������������
Chief Complaint
-: Other (right hallux hardware infection)
Subjective / Review of Systems
Patient seen and examined. Reports new onset rash on back and now on trunk also. Patient reports that it started yesterday on the back, but today has erupted on the frontal trunk.
Review of Systems: No Fever and No Chills
Vital Signs / Physical Exam
Vital Signs
Vital Signs
Temp Pulse Resp BP Pulse Ox
98.2 F 60 18 122/64 97
03/05/25 07:40 03/05/25 07:40 03/05/25 07:40 03/05/25 07:40 03/05/25 07:40
Physical Exam
Constitutional: No Acute Distress, Comfortable and Non-toxic
Eyes: Sclera Anicteric
Pulmonary: Non Labored
Gastrointestinal: Non Distended
Extremities: Negative Edema or Cyanosis
Skin: Rash (Maculopapular rash noted on back and front upper abdomen and lower chest.)
Wound: Other (right foot / hallux dressed. No strikethrough. Lower extremity splinted and wrapped in Ismael wrap.)
Neurological: Awake and Alert
Psychological: Calm
Objective Data
Lab Data
Lab Results
03/04/25 08:42
ESR 10 mm/hour (0-20) 03/05/25 05:30
Estimated Creat Clear 96 ml/min 03/04/25 08:42
C-Reactive Protein < 5.00 mg/L (0.0-10.00) 03/05/25 05:30
Most recent labs reviewed.
Micro Results:
02/28/25 21:30 Anaerobic Culture - Preliminary
Foot - Right Culture pending. Anaerobic cultures are examined after 3
days incubation. Additional information to follow.
02/28/25 21:37 Anaerobic Culture - Preliminary
Foot - Right NO ANAEROBES ISOLATED
02/28/25 21:37 Wound Culture - Preliminary
Foot - Right No growth
Gram Stain - Preliminary
02/28/25 21:30 Wound Culture - Preliminary
Foot - Right No growth
Gram Stain - Preliminary
[2025-03-05] MEDS: CUBICIN 16 MG IV (11:04)
--- NOTE | 2025-03-05 13:24 | CM ---
CM following re: discharge planning.
Reviewed pt's chart, met with pt and pt's spouse at bedside.
IV antibiotic is switched to daptomycin 800 mg Q24.
A new script for IV antibiotics with PICC line information faxed to [facility] at [phone]. CM spoke to [facility] personal service representative Katie and she stated they are checking with insurance for approval.per Katie, pt will get IF
antibiotic dose tomorrow and they will start home infusion on . Pt stated he will need ambulance transport to get home and CM will arrange BLS. Pt is NWB LLE and pt has 2 steps to get in to the house.
Per CM note from yesterday, pt referred [facility].
IMM reviewed, placed on chart, pt has a copy.
Please fax discharge instruction to [facility] at [phone].
RD/C plan: home tomorrow vis ambulance BLS with [facility] and home infusion therapy and family support.
[2025-03-05 14:18] VITALS: BP 123/75
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
[2025-03-05] MEDS: LOW STRENGTH ASPIRIN 81 MG PO (22:23)
[2025-03-05] MEDS: BENADRYL 25 MG PO (23:15)
[2025-03-05 23:17] VITALS: BP 119/61
[2025-03-06] MEDS: MOTRIN 600 MG PO (04:50)
[2025-03-06 07:00] VITALS: BP 129/76
[2025-03-06] MEDS: CUBICIN 16 MG IV (10:54)
--- NOTE | 2025-03-06 11:40 | CM ---
CM following re: discharge planning.
Reviewed pt's chart, met with pt and pt's spouse at bedside.
According to MD pt is medically stable to be discharged today.
CM spoke to [facility] enrollment representative Luann and she confirmed that [facility] will start services at pt's home tomorrow.
Both pt and his spouse are aware.
[facility] to arrange ambulance BLS. [facility] completed and left with [facility]
Please fax discharge instructions to [facility] [phone]
D/C plan: home with [facility] and [facility].
--- NOTE | 2025-03-06 12:09 | W.DS.TRANS ---
DC Summary - Dance Coach
-
Discharge Instructions:
Sleep Apnea Risk Low
Discharge Diagnosis/Procedures (R) hallux exposed hardware infection s/p
arthrodesis (12/27/24)
Diet Regular
Instructions:
Stand-Alone Forms:
Changes to Home Medications: Yes
Discharge Medications:
DC Medications w/original date entered in [facility]
ibuprofen 200 mg tablet (Advil) 400 mg PO Q6H PRN mild pain 08/23/24
rosuvastatin 20 mg tablet 20 mg PO HS High Cholesterol 08/23/24
aspirin 81 mg chewable tablet 81 mg PO HS Blood Clot Prevention/Tx 02/27/25
DAPTOmycin [Cubicin] 800 mg As Directed mls/hr IV Q24H 03/06/25
oxycodone 5 mg tablet 5 mg PO Q4HPRN PRN severe pain #14 tabs 03/06/25
Home Medication Changes
Antibiotics
Pending Results: No
[2025-03-06 12:24] VITALS: BP 127/87
--- NOTE | 2025-03-06 13:41 | W.PN.ID1 ---
Date of Service
Date of Service: March 06, 2025
Today's Communication
Continue antibiotics.
Assessment / Plan
(R) hallux exposed hardware infection s/p arthrodesis (12/27/24)
s/p debridement / hardware explant (02/28/25)
Recommendations:
Wound culture without growth, although given exposed hardware, potential for bone infection high.
Patient now with new rash, possibly secondary to vancomycin.
Continue with daptomycin. CPK normal.
PICC in place.
Will follow-up in office in 2 weeks time.
Weekly labs (BMP, CBC with differential, ESR, CRP d)
����������������������������������������������������������
Chief Complaint
-: Other (right hallux hardware infection)
Subjective / Review of Systems
Patient seen and examined. Reports rash was mildly pruritic yesterday, but pruritus improved with Benadryl.
Review of Systems: No Fever and No Chills
Vital Signs / Physical Exam
Vital Signs
Vital Signs
Temp Pulse Resp BP Pulse Ox
98 F 68 17 127/87 98
03/06/25 12:24 03/06/25 12:24 03/06/25 12:24 03/06/25 12:24 03/06/25 12:24
Physical Exam
Constitutional: No Acute Distress, Comfortable and Non-toxic
Eyes: Sclera Anicteric
Pulmonary: Non Labored
Gastrointestinal: Non Distended
Extremities: Negative Edema or Cyanosis
Skin: Rash (Maculopapular rash noted on back and front upper abdomen and lower chest without significant change from yesterday.)
Wound: Other (right foot / hallux dressed. No strikethrough. Lower extremity splinted and wrapped in Ismael wrap.)
Neurological: Awake and Alert
Psychological: Calm
Objective Data
Lab Data
Lab Results
03/04/25 08:42
ESR 10 mm/hour (0-20) 03/05/25 05:30
Estimated Creat Clear 96 ml/min 03/04/25 08:42
C-Reactive Protein < 5.00 mg/L (0.0-10.00) 03/05/25 05:30
Most recent labs reviewed.
Micro Results:
02/28/25 21:37 Wound Culture - Final
Foot - Right No growth
Gram Stain - Final
02/28/25 21:37 Anaerobic Culture - Final
Foot - Right NO ANAEROBES ISOLATED
02/28/25 21:30 Wound Culture - Final
Foot - Right No growth
Gram Stain - Final
02/28/25 21:30 Anaerobic Culture - Final
Foot - Right NO ANAEROBES ISOLATED
--- NOTE | 2025-03-08 11:17 | PN.CDI ---
CDI
- -
CDI:
Physician Documentation Request
Admit Date: 02/28/25 16:07
Dear Doctor,
Patient admitted for exposed hardware.
03/04 ID PN: 'Wound culture without growth, although given exposed hardware, potential for bone infection high...They are amenable to a 3 to 6-week course of IV antibiotics in the treatment of potential osteomyelitis. Prescription written for home IV
vancomycin. PICC line ordered.'
DC Summary: 'Patient was initiated on empiric antibiotics with vancomycin, unfortunately, developed drug reaction with diffuse body rash and transitioned to daptomycin on March 05. Patient is planning for three to six weeks of IV antibiotics'
Please clarify the following:
____ - Osteomyelitis is still a likely, suspected, probable diagnosis
____ - Osteomyelitis was present on admission and is now resolved.
____ - Osteomyelitis was present on admission and is still being monitored, evaluated or treated
____ - Osteomyelitis was ruled out
____ - Other
____ - Unable to determine
Use of terms such as suspected, likely, concern for, or probable (associated with a specific diagnosis that is being evaluated, monitored, or treated as if it exists) are acceptable and can be coded in the inpatient setting, when documented at the
time of discharge.
Thank you,
Penelope Mahajan RN, BSN
CDI Specialist
Available via [place] text
Please use your independent medical judgment in providing your response.
== END 2025-03-06 14:51 | disposition home health service (06) | DRG 464 ==
LOC: 2 SOUTH 16:07
PROVIDERS: ADMITTING PHYSICIAN Student in an Organized Health Care Education/Training Program; ATTENDING PHYSICIAN Internal Medicine; CONSULT PHYSICIAN Internal Medicine Infectious Disease; FAMILY PHYSICIAN Family Medicine
PROC: 0JBQ0ZZ Excision of Right Foot Subcutaneous Tissue and Fascia, Open Approach (ICD-10-PCS; 2025-03-01)
PROC: 0QPN04Z Removal of Internal Fixation Device from Right Metatarsal, Open Approach (ICD-10-PCS; 2025-03-01)
PROC: 0HXMXZZ Transfer Right Foot Skin, External Approach (ICD-10-PCS; 2025-03-01)
DX: T84.293A Other mechanical complication of internal fixation device of bones of foot and toes, initial encounter (principal); M86.171 Other acute osteomyelitis, right ankle and foot; M20.21 Hallux rigidus, right foot; G43.109 Migraine with aura, not intractable, without status migrainosus; E80.4 Gilbert syndrome; N20.0 Calculus of kidney; E78.00 Pure hypercholesterolemia, unspecified; R97.20 Elevated prostate specific antigen [PSA]; C44.91 Basal cell carcinoma of skin, unspecified; L27.0 Generalized skin eruption due to drugs and medicaments taken internally; T36.8X5A Adverse effect of other systemic antibiotics, initial encounter; Z79.899 Other long term (current) drug therapy; Z86.73 Personal history of transient ischemic attack (TIA), and cerebral infarction without residual deficits; Z79.82 Long term (current) use of aspirin
CPT/HCPCS: 36415; 71045; 73630; 80048; 80202; 82550; 82565; 83036; 84520; 85652; 86140; 87070; 87075; 87205; 88300; 97110; 97116; 97163; 97167; 97530; 97535; J0878